=== PATIENT | female | born 1945 | race Caucasian/White ===

== ENCOUNTER → 2016-03-05 | Outpatient (CLI) | payer BC ==
[2016-03-05 17:58] LABS: URINE APPEARANCE TURBID (CLEAR); URINE COLOR YELLOW; URINE SPECIFIC GRAVITY 1.009 (1.000-1.030)
[2016-03-05 17:59] LABS: URINE BILIRUBIN NEG (NEG); URINE NITRITE NEG (NEG); UROBILINOGEN NEG (NEG)
[2016-03-05 18:05] LABS: HEMATOCRIT 38.9 % (37-47); MEAN CORPUSCULAR HEMOGLOBIN 31.3 pg (25-34); MEAN CORPUSCULAR HGB CONC 34.7 g/dl (32-36); MEAN PLATELET VOLUME 9.6 fL (7.4-10.4); PLATELET COUNT 231 K/uL (130-400); RED BLOOD COUNT 4.32 M/uL (4.2-5.4); WHITE BLOOD COUNT 6.89 K/uL (4.8-10.8)
[2016-03-05 18:08] LABS: MANUAL MICROSCOPIC REQUIRED? NO; REVIEW REQ? NO
== END | disposition home or self-care (01) ==
LOC: C.LABMFLN 15:15
PROVIDERS: ATTEND Family Medicine
DX: Z00.00 Encounter for general adult medical examination without abnormal findings (principal)

== ENCOUNTER → 2016-05-15 | Outpatient (CLI) | payer BC ==
[2016-05-15 18:21] LABS: BLOOD UREA NITROGEN 18 mg/dl (7-18); BUN/CREATININE RATIO 22.3 (10-20); CALCIUM 10.4 mg/dl (8.5-10.1); CARBON DIOXIDE 35 mmol/L (21-32); CHLORIDE 102 mmol/L (98-107); CREATININE 0.81 mg/dl (0.60-1.20); GLUCOSE 93 mg/dl (70-99); POTASSIUM 3.9 mmol/L (3.5-5.1); SODIUM 142 mmol/L (136-145)
== END | disposition home or self-care (01) ==
LOC: C.LABMFLN 11:36
PROVIDERS: ATTEND Family Medicine
DX: I10 Essential (primary) hypertension (principal)

== ENCOUNTER → 2017-05-20 | Outpatient (CLI) | payer BC ==
--- NOTE | 2017-05-20 13:11 | DIAGNOSTIC IMAGING REPORT ---
RENAL ULTRASOUND CLINICAL HISTORY: Renal mass. COMPARISON STUDY: CT of the abdomen and pelvis September 18, 2015. TECHNIQUE: Sonography of the kidneys and the urinary bladder was performed. FINDINGS: The right kidney measures 9.1 cm in maximal dimension and the left measures 9.5 cm. There is a 1.5 cm anechoic lesion consistent with a cyst within the upper pole of the right kidney which corresponds to the intermediate attenuation lesion shown on CT of September 18, 2015. There is a 0.7 cm septated left renal cyst. No solid renal lesion is identified by sonography. There is no hydronephrosis. Both ureteral jets were identified. There is mild renal cortical thinning. IMPRESSION: 1. Several bilateral renal cysts, including a 1.5 cm cyst within the upper pole of the right kidney which corresponds to an intermediate attenuation lesion by CT. 2. No hydronephrosis. Electronically signed by: Denton Solo M.D. 05/20/2017 1:10 PM Dictated Date/Time: 05/20/2017 1:08 PM
== END | disposition home or self-care (01) ==
LOC: C.ULTR 11:56
PROVIDERS: ATTEND Urology
DX: N28.89 Other specified disorders of kidney and ureter (principal); N28.1 Cyst of kidney, acquired